=== PATIENT | male | born 1960 | race Caucasian/White ===

== ENCOUNTER 2020-08-26 10:31 | Observation (INO) ==
--- NOTE | 2020-07-23 13:33 | PAT Medication Instructions ---
Medication Instructions Date of Service July 23, 2020 Home Medications cholecalciferol (vitamin D3) [Vitamin D3] 50 mcg PO QAM omega-3 fatty acids [[place] 3] 1,000 mg PO QAM turmeric root extract 1,000 mg PO QAM STOP taking 2 weeks before surgery (or as soon as possible if surgery is within 2 weeks) omega-3 fatty acids [[place] 3] 1,000 mg PO QAM turmeric root extract 1,000 mg PO QAM DO NOT take the morning of surgery cholecalciferol (vitamin D3) [Vitamin D3] 50 mcg PO QAM Other Notes If you have any questions please call us at [phone] or [phone] or [phone] or [phone]
--- NOTE | 2020-07-28 12:42 | History & Physical Report ---
Date of Service July 28, 2020 date of surgery: 08/26/20 procedure: Right Total Knee Arthroplasty Assessment & Plan (1) Arthritis of right knee: Risks and benefits of procedure discussed in detail today, patient would like to proceed with a Right total knee replacement at [facility] as scheduled. will obtain medical clearance from Dr Rebolledo prior to surgery as well as obtain PATs at [facility]. Will place on ASA 81mg po bid x 1 month post op, f/u 2 weeks post op for routine post-operative care and x-ray, sooner if having any problems. will make arrangements for OPPT at the time of discharge. At this point in time, has failed conservative measures and would like to proceed with surgical intervention. The risks and benefits have been discussed including, but not limited to, risk of infection, nerve injury, stiffness, loss of motion, failure to improve, etc. Reasonable outcomes and options of treatment were discussed. An explanation of appropriate alternatives to the procedure that may be advantageous were discussed and their risks and benefits, as well as the risks and benefits of not proceeding with treatment. I offered to answer any additional inquiries concerning the treatment involved. All the patient's questions were answered. The patient is agreeable, understanding of the treatment plan and alternatives, and wishes to proceed with the treatment plan. History of Present Illness Chief Complaint: Right knee pain Primary Care Provider: Adilson Rebolledo MD Mr. Pastrana is a 59 year old male who complains of Right knee pain, presents for pre-op evaluation prior to a right total knee replacement by dr Molina at [facility]. He complains of pain, decreased range of motion, in his right knee. He states that the symptoms have been chronic and non-traumatic and describes his pain as aching, sharp and throbbing. The symptoms are aggravated by ascending stairs, daily activities, first steps while awake walking. Prior NSAIDs include Motrin and Aleve. He has been treated with previous cortisone injections in the past without much relief. he had prior knee arthroscopy partial menisectomy about 6 years ago. 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" Cardiac murmur "MILD" NO CARDS Degenerative disc disease GERD (gastroesophageal reflux disease) Hx of gout Osteoarthritis Surgical History Fusion of spine LUMBAR H/O knee surgery RT/LEFT KNEE (BOTH X 2) History of cholecystectomy History of colonoscopy History of esophagogastroduodenoscopy (EGD) History of repair of rotator cuff RT History of tonsillectomy and adenoidectomy History of total knee replacement LEFT Hx of LASIK [place] teeth removed Family History Brother Family hx of colon cancer Social History Smoking Status: Never smoker Second Hand Exposure: Yes (YEARS AGO); Do You Dip or Chew Tobacco: No; Tobacco Cessation Education Requested by Patient: No Hx Alcohol Use: Yes Alcohol type: beer Preferred Language: Yakut Insole And Outsole Preparer Required: No Beliefs That Will Affect Care: None Current Living Situation: Spouse Feels Safe at Home: Yes Safety Concerns: Feels Safe At This Time Assistive Devices: Glasses Assistive Devices Comment: READING GLASSES Review of Systems Review of Systems: All systems reviewed & are unremarkable except as noted in HPI & below Constitutional: no fever, no chills and no sweats Respiratory: no cough and no dyspnea Cardiovascular: no chest pain, no dyspnea and no orthopnea Gastrointestinal: no abdominal pain, no nausea and no vomiting Musculoskeletal: as per Subjective / HPI Physical Exam Physical Exam: HT: 6ft WT: 98.4kg BP: 128/82 Constitutional: WD/WN, vitals as above no acute distress Respiratory: normal respiratory effort, lungs clear to auscultation no respiratory distress, no labored breathing and does not use accessory muscles Cardiovascular: RRR, no murmur, no edema Gastrointestinal (Abdomen): normal bowel sounds, soft, nontender, no hepatosplenomegaly Musculoskeletal: Knee: + knee abnormal to inspection (Right knee), + effusion (+1 effusion), + surgical incision (well healed portals), + limited ROM of knee (ROM 0/3/110), + knee ROM with crepitation, + joint line tenderness (medial joint line) and + Omer's sign positive; no deformity, no skin erythema, no ecchymosis, no valgus laxity, no varus laxity, anterior drawer test negative, Jaswinder's sign negative and pivot shift test negative Results & Data Results & Data ([place]) Diagnostic Findings right knee x-ray from 05-01-20 showing complete loss joint space medial compartment with overall varus alignment, there is also narrowing of the lateral compartment and patellofemoral joint. there is osteophyte formation, subchondral sclerosis noted, no loose bodies, no acute bony pathology. overall impression tricompartmental degenerative changes to the right knee.
--- NOTE | 2020-07-28 13:23 | Anesthesiology Consultation ---
Date of Service July 28, 2020 Assessment & Plan (1) Encounter for pre-operative examination: - Per assessment on 07/28: Travel screen negative. Patient returned from trip to [place] (traveled in [facility]) 07/16 (DOS not until 08/26/20). No further travel planned until surgery. No known COVID-19 positive contacts or current COVID-19 related symptoms. Surgeon arranging preop COVID testing. Awaiting results. - Left total knee arthroplasty: 08/09/16: SAB x1 attempt at L3-L4 + PNB at [facility] Chart Review Chart Review: Acceptable Risk for Surgery (pending surgeon-ordered PCP clearance) and Patient seen in Pre Admission Testing Teaching & Discussion Pre-Anesthesia Teaching/Discussion Notes: Instructed NPO after midnight before surgery,except medications with 15 cc of water. Medication instructions provided according to the PAT guidelines. History Surgery Operation Date: 08/26/20 07:00 Proposed Procedures p Right Total Knee Arthroplasty - Allen Molina DO Height/Weight Height: 6 ft Weight: 100.5 kg Allergies Allergy/AdvReac Type Severity Reaction Status Date / Time No Known Allergies Allergy Verified 07/20/20 15:18 Medications Home Medications Medication Instructions Recorded Confirmed Last Taken cholecalciferol (vitamin D3) 50 mcg PO QAM 07/20/20 07/20/20 Unknown [Vitamin D3] omega-3 fatty acids [[place] 3] 1,000 mg PO QAM 07/20/20 07/20/20 Unknown turmeric root extract 1,000 mg PO QAM 07/20/20 07/20/20 Unknown Past Medical History Medical History (Updated 07/28/20 @ 14:22 by Marlys Busch) Barretts esophagus Bradycardia chronic, asymptomatic, active, "used to be runner" Degenerative disc disease GERD (gastroesophageal reflux disease) Hx of gout Osteoarthritis Exercise / Class Metabolic Activity II 4-5 Yardwork/Stairs/Walk up hill Past Family History Family History Brother Family hx of colon cancer Past Surgical History Surgical History (Updated 07/28/20 @ 14:12 by Marlys Busch) Fusion of spine Lumbar H/O knee surgery R/L (multiple) History of cholecystectomy History of colonoscopy History of esophagogastroduodenoscopy (EGD) History of repair of rotator cuff Right History of tonsillectomy and adenoidectomy History of total knee replacement Left total knee arthroplasty: 08/09/16: SAB x1 attempt at L3-L4 + PNB at [facility] Hx of LASIK [place] teeth removed Past Anesthesia History No Hx of Anesthesia Complications and No Family Hx of Anesthesia Complications History of PONV No Hx of PONV and No Hx of Motion Sickness Social History Smoking Status: Never smoker Do You Dip or Chew Tobacco: No Hx Alcohol Use: Yes Alcohol type: beer alcohol intake frequency: a few times a week Alcohol Intake Frequency Comment: 6 BEERS PER WEEK substance use type: does not use Review of Systems Patient denies chest pain, shortness of breath, dyspnea on exertion, fever, chills, cough, wheezing, palpitations. Physical Exam Vital Signs VITALS BP 122/84 P 56 TEMP 97.8 SP02 94%RA RESP 16 PHYSICAL Full neck and c-spine range of motion. Full TMJ range of motion. TMD 4 finger breaths Mallampati Score 2 Dentition: intact Lungs: clear throughout to auscultation Cardiac: regular rate and rhythm, I/ systolic murmur Spine: normal Carotid arteries: negative bruit Extremities: no edema Testing Laboratory Results 07/28/20 14:10 07/28/20 14:10 PT 10.6 Seconds (9.0-12.0) 07/28/20 14:10 INR 1.0 (0.9-1.1) 07/28/20 14:10 APTT 28.2 Seconds (21.0-31.0) 07/28/20 14:10 Hemoglobin A1c 5.1 % (4.5-5.6) 07/28/20 14:10 Urine Color Yellow 07/28/20 14:10 Urine Appearance Clear (Clear) 07/28/20 14:10 Urine pH 5.0 (4.5-7.5) 07/28/20 14:10 Ur Specific [place] 1.014 (1.000-1.030) 07/28/20 14:10 Urine Protein Negative (Negative) 07/28/20 14:10 Urine Glucose (UA) Negative (Negative) 07/28/20 14:10 Urine Ketones Negative (Negative) 07/28/20 14:10 Urine Nitrite Negative (Negative) 07/28/20 14:10 Ur Leukocyte Esterase Negative (Negative) 07/28/20 14:10 Blood Type O Negative 07/28/20 14:10 Antibody Screen NEGATIVE 07/28/20 14:10 Low WBC. Preop labs to be forwarded to PCP for continuity of care. Electrocardiogram Date: 04/08/20 SB with first degree AVB at 57bpm. Chest X-Ray Date: 07/28/20 FINDINGS: Cardiomediastinal and hilar silhouettes are within normal limits. No pneumothorax, pleural effusion, airspace consolidation or overt pulmonary edema. Bones of the chest appear grossly intact. Degenerative changes of the shoulders and spine. Cholecystectomy. IMPRESSION: No acute process.
--- NOTE | 2020-07-28 14:30 | XRay Report ---
XR chest Pre-admission PA/Lat HISTORY: 59 years-old Male pat preoperative exam. No acute chest complaints COMPARISON: Chest radiographs 07/11/2016 TECHNIQUE: PA and lateral views of the chest FINDINGS: Cardiomediastinal and hilar silhouettes are within normal limits. No pneumothorax, pleural effusion, airspace consolidation or overt pulmonary edema. Bones of the chest appear grossly intact. Degenerati ve changes of the shoulders and spine. Cholecystectomy. IMPRESSION: No acute process. ACT 112: Negative or not required by law. The above report was generated using voice recognition software. It may contain grammatical, syntax o r spelling errors. Electronically signed by: Yogi Estevez M.D. 07/28/2020 2:28 PM
[2020-07-28 16:17] LABS: Appearance Urine Clear (Clear); Basophils # (auto) 0.01 K/uL (0-0.2); Basophils % (auto) 0.3 %; Bilirubin Urine Negative (Negative); Blood Urine Negative (Negative); Color Urine Yellow; Eosinophils % (auto) 2.6 %; Glucose Urine UA Negative (Negative); Hematocrit (blood only) 44.3 % (42-52); Hemoglobin 14.8 g/dL (14.0-18.0); Immature Granulocytes # (auto) 0.01 K/uL (0.00-0.02); Immature Granulocytes % (auto) 0.3 %; Ketones Urine Negative (Negative); Leukocyte Esterase Urine Negative (Negative); Lymphocytes # (auto) 0.87 K/uL (1.2-3.4); Lymphocytes % (auto) 22.4 %; Mean Corpuscular Hemoglobin 29.9 pg (25-34); Mean Corpuscular Hgb Conc 33.4 g/dL (32-36); Mean Corpuscular Volume 89.5 fL (80-100); Monocytes # (auto) 0.41 K/uL (0.11-0.59); Monocytes % (auto) 10.6 %; Neutrophils # (auto) 2.48 K/uL (1.4-6.5); Neutrophils % (auto) 63.8 %; Nitrite Urine Negative (Negative); Platelet Count 192 K/uL (130-400); Protein Urine Negative (Negative); RDW Coefficient of Variation 13.1 % (11.5-14.5); RDW Standard Deviation 42.7 fL (36.4-46.3); Red Blood Count 4.95 M/uL (4.7-6.1); Specific Gravity Urine 1.014 (1.000-1.030); Urobilinogen Urine Negative (Negative); White Blood Count 3.88 K/uL (4.8-10.8)
[2020-07-28 16:28] LABS: Partial Thromboplastin Time 28.2 Seconds (21.0-31.0); Prothrombin Time 10.6 Seconds (9.0-12.0)
[2020-07-28 16:30] LABS: BUN Creatinine Ratio 16.6 (10-20); Calcium 8.9 mg/dl (8.5-10.1); Creatinine Clr Calc Pharmacy 79.4 ml/min; Est GFR (Non-African American) 63.9; Potassium 3.9 mmol/L (3.5-5.1)
[2020-07-29 05:41] LABS: Estimated Average Glucose 100 mg/dl; Hemoglobin A1C 5.1 % (4.5-5.6)
[~2020-08-26 10:31] MED LIST: ACETAMINOPHEN 500 MG TAB PO SCH; BUPIVACAINE 0.5 % 5 MG/1 ML PF 10ML VIAL ONE; CeleBREX 200 MG CAP PO SCH; FAMOTIDINE 20 MG TAB PO SCH; GABAPENTIN 600 MG DOSE PO SCH; LIDOCAINE HCL 2% 2 ML VIAL/AMP(20MG/ML) INFIL ONE; LR 500ML BOLUS, THEN 15ML/HR IV SCH; METOCLOPRAMIDE HCL 10 MG TABLET PO SCH; MIDAZOLAM HCL 1 MG/ML 2ML VIAL ONE; PROPOFOL IV EMULSION 10 MG/ML 20 ML VIAL IV ONE; ROPIVACAINE 0.5% 5 MG/ML 30 ML VIAL ONE; ROPIVACAINE 0.5% HCL/PF 150 MG, BUPIVACAINE 0.5% MPF 30 ML, EPINEPHrine 30MG/30ML (OR U... INSTIL SCH; TRANEXAMIC ACID 1,000 MG **IV Intra-op IV SCH; TRANEXAMIC ACID 1,000 MG **IV Pre-op IV SCH; ceFAZolin 2000MG 2,000 MG/15 ML SYR IV SCH; dexAMETHasone 4 MG TAB PO SCH
--- NOTE | 2020-08-26 10:52 | History & Physical Bridge Note ---
Date of Service August 26, 2020 History & Physical Bridge Note I have examined the patient, reviewed the History & Physical and in the interval since the performance of the History & Physical I have noted the following changes of clinical significance: no changes noted
[2020-08-26] MEDS ORDERED: BACITRACIN INJ 50,000 UNIT VIAL ONE (11:35)
[2020-08-26] MEDS ORDERED: ORTHO JOINT ANESTHETIC ONE (11:36)
[2020-08-26] MEDS ORDERED: KETOROLAC 30 MG/ML VIAL IV PRN (12:14)
[2020-08-26] MEDS ORDERED: ePHEDrine sulfate 50 MG/ML AMP IV PRN (12:14)
[2020-08-26] MEDS ORDERED: ATROPINE SULFATE 0.1 MG/ML 10ML SYR IV PRN (12:14)
[2020-08-26] MEDS ORDERED: HYDROmorphone INJ 1 MG/ML SYRINGE IV PRN ×2 (12:14→16:19)
[2020-08-26] MEDS ORDERED: ONDANSETRON INJ 2 MG/ML 2 ML VIAL IV PRN ×2 (12:14→16:19)
--- NOTE | 2020-08-26 13:37 | Operative Report ---
Post Operative Report Pre & Post Diagnosis Operation Date: 08/26/20 12:20 Pre-Op Diagnosis: Unilateral Primary Osteoarthritis of Right Knee Post-Op Diagnosis: Unilateral Primary Osteoarthritis of Right Knee I identified the patient and participated in the time-out.: Yes Procedure Operation Date: 08/26/20 12:20 Actual Procedures p Right Total Knee Arthroplasty, Cemented(Right) utilizing [employer] journey 2 patient matched total knee arthroplasty size 7 femur 6 tibia 11 polyethylene 38 oval patella- Allen Molina DO Surgeon Allen Molina DO Medical Transport Specialist Paul ROSADO Estimated Blood Loss 5 Findings Consistent with Post-Op Diagnosis Patient presents with severe end-stage DJD 7 degree flexion contracture right knee varus alignment subchondral [id number] subchondral sclerosis marginal o steophytes moderate to large effusion no response to conservative management Specimens Bone and cartilage Drains Medium bore Hemovac Anesthesia Type MAC Spinal Regional Disposition Accompanied Patient To Recovery: No Disposition: Recovery Room Indications Patient presents being seen evaluated for planes of ongoing pain trouble to the right knee no response to conservative management the patient is failed times a corticosteroid injection Visco supplementation relative rest activity modification the above intraoperative findings were noted. Description of Procedure After proper prepping and draping of the Right lower extremity anterior midline incision was made over the region of the extensor extensor mechanism after meticulous hemostasis was obtained and maintained in subcutaneous tissues a medial parapatellar incision was made The patella was subluxed lateralward the medial lateral gutter were cleaned from any hypertrophic synovitis and scar tissue of the distal femoral block was placed and the distal femoral osteotomy cut was made subsequently the chamfers anterior and posterior osteotomy cuts were made utilizing the 4-in-1 block the tibia was subsequently subluxed anteriorward medial and ateral meniscal remnants were excised in their entirety remnants of the anterior and posterior cruciate ligaments were excised in their entirety excellent exposure of the proximal tibia was obtained the tibial osteotomy guide was placed on the proximal tibial osteotomy cut was made once again the knee was irrigated with copious amounts of sterile saline solution the patella was subsequently everted lateralward thickened scar tissue around the patella was removed the patella was subsequently cut utilizing a freehand technique and was drilled prepared for final preparation and placement of patella socially flexion-extension gaps were checked and the equal and symmetric trials were placed to the appropriate femoral and tibial trials with poly-spacer being placed for equal flexion and extension gaps and full range of motion including extension to 0 and flexion to 140 the trial components after having been taken to recovery range of motion was subsequently removed meticulous hemostasis was obtained and maintained subsequently a knee block injection of joint cocktail including ropivacaine 0.5% 150 mg. Bupivacaine 0.5% epinephrine 1-200,030 mL's toradol 30 mg dexamethasone 4 mg ketamine 10 mg clonidine 100 micrograms normal saline solution 30 mg was infiltrated into the soft tissues of the posterior knee medial lateral gutters and periosteal synovium special attention was paid to protect neurovascular structures at all times subsequently trial components having been removed the knee was irrigated with sterile saline solution. debris was removed the proximal tibia was subsequently prepared and was made ready for the placement of the tibial component tibial component was a lso cemented and tamped into position the femoral component was subsequently placed and cemented in the position the patellar component was subsequently cemented in position because hemostasis once again obtained and maintained wound having been thoroughly irrigated with debridement and debridement lavage was performed as well as a medial parapatellar incision closed with #1 Vicryl in interrupted fashion subcutaneous was closed with #2 Vicryl skin was closed with skin clips. PA-C was necessary for prepping and drapping as well as wound closure of deep fascia Sub cutaneous tissue and skin and was necessary for the case. A sterile compressive dressing was placed patient was taken to recovery in stable condition of report dictated by Jesse I attest to the content of the Intraoperative Record and any orders documented therein. Any exceptions are noted below. I attest to the content of the Intraoperative Record and any orders documented therein. Any exceptions are noted below.
--- NOTE | 2020-08-26 14:39 | XRay Report ---
TWO VIEWS RIGHT KNEE CLINICAL HISTORY: Postoperative examination. FINDINGS: AP and crosstable lateral portable views of the right knee are obtained. A right knee arthr oplasty is in near anatomic alignment. There has been undersurface remodeling of the patella. No acut e fracture is seen. There are expected postoperative changes around the knee including a surgical malcom in, soft tissue edema, and subcutaneous gas. IMPRESSION: Expected postoperative changes status post right knee arthroplasty. No acute fracture is seen. ACT 112: Negative or not required by law. Electronically signed by: Eamon Mack M.D. 08/26/2020 2:38 PM
--- NOTE | 2020-08-26 14:51 | Anesthesiology Progress Note ---
Date of Service August 26, 2020 Anesthesia Post Procedure Vital Signs Vital Signs: Temp Pulse Pulse Resp BP BP Pulse Ox 08/26/20 14:40 52 L 18 101/61 95 08/26/20 14:30 56 L 16 114/65 97 08/26/20 14:20 37.3 C 55 L 14 117/59 L 96 08/26/20 11:37 59 L 18 135/75 18 L 08/26/20 11:00 36.4 C L 62 18 135/88 94 Transfer of Care Handoff Completed per policy Notes Mental Status: alert / awake / arousable and participated in evaluation Nausea / Vomiting: adequately controlled Pain: adequately controlled Airway Patency, RR, SpO2: stable & adequate BP & HR: stable & adequate Hydration State: stable & adequate Neuraxial Anesthesia: was administered and sensory block is resolving Anesthetic Complications: no major complications apparent and Pt Satisfied with anesthetic care
[2020-08-26] MEDS ORDERED: MAGNESIUM HYDROXIDE SUSP 30 ML UDC PO PRN (16:19)
[2020-08-26] MEDS ORDERED: diphenhydrAMINE Capsule 25 MG CAP PO PRN (16:19)
[2020-08-26] MEDS ORDERED: bisacodyL 10 MG SUPP PR PRN (16:19)
[2020-08-26] MEDS ORDERED: NALOXONE HCL 0.4 MG/1 ML VIAL/CARP IV PRN (16:19)
[2020-08-26] MEDS ORDERED: METOCLOPRAMIDE HCL INJ 5 MG/ML 2 ML VIAL IV PRN (16:19)
[2020-08-26] MEDS ORDERED: oxyCODONE HCL IR 5 MG TAB (IMMEDIATE RELEASE) PO PRN (16:19)
[2020-08-26] MEDS ORDERED: SODIUM CHLORIDE 0.9% 1000ML 1,000 ML IV SCH (16:19)
[2020-08-26] MEDS: ACETAMINOPHEN 500 MG TAB PO SCH ×2 (17:41→22:20)
[2020-08-26] MEDS: KETOROLAC 30 MG/ML VIAL IV SCH ×2 (17:41→22:20)
[2020-08-26] MEDS: ceFAZolin 2000MG 2,000 MG/15 ML SYR IV SCH (20:48)
[2020-08-26] MEDS: ASPIRIN 81 MG ECTAB PO SCH (20:49)
[2020-08-26] MEDS: DOCUSATE SODIUM 100 MG CAP PO SCH (20:49)
[2020-08-26] MEDS ORDERED: SENNA 8.6 MG TAB PO SCH (21:00)
[2020-08-27] MEDS: ceFAZolin 2000MG 2,000 MG/15 ML SYR IV SCH (05:25)
[2020-08-27] MEDS: KETOROLAC 30 MG/ML VIAL IV SCH ×2 (05:28→12:08)
[2020-08-27] MEDS: ACETAMINOPHEN 500 MG TAB PO SCH (05:30)
[2020-08-27 06:10] LABS: Hematocrit (blood only) 38.7 % (42-52); Hemoglobin 13.4 g/dL (14.0-18.0); Mean Corpuscular Hemoglobin 30.8 pg (25-34); Mean Corpuscular Hgb Conc 34.6 g/dL (32-36); Mean Platelet Volume 10.4 fL (7.4-10.4); Platelet Count 200 K/uL (130-400); Red Blood Count 4.35 M/uL (4.7-6.1)
[2020-08-27 06:46] LABS: BUN Creatinine Ratio 12.1 (10-20); Calcium 8.3 mg/dl (8.5-10.1); Creatinine Clr Calc Pharmacy 74.6 ml/min; Est GFR (African American) 68.6; Est GFR (Non-African American) 59.2; Potassium 3.9 mmol/L (3.5-5.1)
--- NOTE | 2020-08-27 07:07 | Orthopedic Progress Note ---
Date of Service August 27, 2020 Assessment & Plan (1) History of total right knee replacement: POD #1 s/p Right TKA pt/ot dvt proph with THONG/SCD/ASA plan for d/c home with OPPT when stable, will check drain output prior to discharge. Admission and Anticipated Discharge Date Admission Date: August 26, 2020 Subjective POD #1 s/p Right TKA Review of Systems Constitutional: no fever, no chills and no sweats Respiratory: no cough and no dyspnea Cardiovascular: no chest pain and no dyspnea Gastrointestinal: no abdominal pain, no nausea and no vomiting Physical Exam Physical Exam: Laboratory Results WBC 12.40 K/uL (4.8-1 0.8) H 08/27/20 05:44 RBC 4.35 M/uL (4.7-6. 1) L 08/27/20 05:44 Hgb 13.4 g/dL (14.0-1 8.0) L 08/27/20 05:44 Hct 38.7 % (42-52) L 08/27/20 05:44 MCV 89.0 fL (80-100) 08/27/20 05:44 MCH 30.8 pg (25-34) 08/27/20 05:44 MCHC 34.6 g/dL (32-36) 08/27/20 05:44 RDW Std Deviation 42.0 fL (36.4-46. 3) 08/27/20 05:44 RDW Coeff of Anahy 13.0 % (11.5-14.5 ) 08/27/20 05:44 Plt Count 200 K/uL (130-400 ) 08/27/20 05:44 MPV 10.4 fL (7.4-10.4 ) 08/27/20 05:44 Immature Gran % (A uto) 0.3 % 07/28/20 14:10 Neut % (Auto) 63.8 % 07/28/20 14:10 Lymph % (Auto) 22.4 % 07/28/20 14:10 Hickman % (Auto) 10.6 % 07/28/20 14:10 Eos % (Auto) 2.6 % 07/28/20 14:10 Baso % (Auto) 0.3 % 07/28/20 14:10 Neut # (Auto) 2.48 K/uL (1.4-6. 5) 07/28/20 14:10 Lymph # (Auto) 0.87 K/uL (1.2-3. 4) L 07/28/20 14:10 Hickman # (Auto) 0.41 K/uL (0.11-0 .59) 07/28/20 14:10 Eos # (Auto) 0.10 K/uL (0-0.5) 07/28/20 14:10 Baso # (Auto) 0.01 K/uL (0-0.2) 07/28/20 14:10 Immature Gran # (A uto) 0.01 K/uL (0.00-0 .02) 07/28/20 14:10 PT 10.6 Seconds (9.0 -12.0) 07/28/20 14:10 INR 1.0 (0.9-1.1) 07/28/20 14:10 APTT 28.2 Seconds (21. 0-31.0) 07/28/20 14:10 PTT Ratio 1.0 07/28/20 14:10 Sodium 140 mmol/L (136-1 45) 08/27/20 05:44 Potassium 3.9 mmol/L (3.5-5 .1) 08/27/20 05:44 Chloride 110 mmol/L (98-10 7) H 08/27/20 05:44 Carbon Dioxide 25 mmol/L (21-32) 08/27/20 05:44 Anion Gap 5.0 (3-11) 08/27/20 05:44 BUN 16 mg/dl (7-18) 08/27/20 05:44 Creatinine 1.31 mg/dl (0.6-1 .4) 08/27/20 05:44 Est Cr Clr Drug Do sing 74.6 ml/min 08/27/20 05:44 Est GFR ( A osvaldo) 68.6 08/27/20 05:44 Est GFR (Non-Af Am er) 59.2 08/27/20 05:44 BUN/Creatinine Rat io 12.1 (10-20) 08/27/20 05:44 Glucose 117 mg/dl (70-99) H 08/27/20 05:44 Estimat Average Gl ucose 100 mg/dl 07/28/20 14:10 Hemoglobin A1c 5.1 % (4.5-5.6) 07/28/20 14:10 Calcium 8.3 mg/dl (8.5-10 .1) L 08/27/20 05:44 Albumin 4.0 gm/dl (3.4-5. 0) 07/28/20 14:10 Urine Color Yellow 07/28/20 14:10 Urine Appearance Clear (Clear) 07/28/20 14:10 Urine pH 5.0 (4.5-7.5) 07/28/20 14:10 Ur Specific Gravit y 1.014 (1.000-1.0 30) 07/28/20 14:10 Urine Protein Negative (Negati ve) 07/28/20 14:10 Urine Glucose (UA) Negative (Negati ve) 07/28/20 14:10 Urine Ketones Negative (Negati ve) 07/28/20 14:10 Urine Blood Negative (Negati ve) 07/28/20 14:10 Urine Nitrite Negative (Negati ve) 07/28/20 14:10 Urine Bilirubin Negative (Negati ve) 07/28/20 14:10 Urine Urobilinogen Negative (Negati ve) 07/28/20 14:10 Ur Leukocyte Alicia ase Negative (Negati ve) 07/28/20 14:10 Blood Type O Negative 07/28/20 14:10 Antibody Screen NEGATIVE 07/28/20 14:10 Constitutional: WD/WN, vitals as above no acute distress Musculoskeletal: Right Leg: NVDI, calf SNT, negative miguel sign. DP palpable, able to wiggle toes/ankle movement without difficulty. dressing clean dry and intact. Results & Data ([facility]) Vital Signs (Past 12 Hours) Vital Signs Temp Pulse Resp BP BP Pulse Ox 08/27/20 03:41 36.5 C 61 15 123/70 94 08/26/20 23:41 36.4 C L 62 16 149/88 H 92 08/26/20 20:57 36.7 C 63 18 141/92 H 95 Laboratory Results Laboratory Results WBC 12.40 K/uL (4.8-10.8) H 08/27/20 05:44 RBC 4.35 M/uL (4.7-6.1) L 08/27/20 05:44 Hgb 13.4 g/dL (14.0-18.0) L 08/27/20 05:44 Hct 38.7 % (42-52) L 08/27/20 05:44 MCV 89.0 fL (80-100) 08/27/20 05:44 MCH 30.8 pg (25-34) 08/27/20 05:44 MCHC 34.6 g/dL (32-36) 08/27/20 05:44 RDW Std Deviation 42.0 fL (36.4-46.3) 08/27/20 05:44 RDW Coeff of Anahy 13.0 % (11.5-14.5) 08/27/20 05:44 Plt Count 200 K/uL (130-400) 08/27/20 05:44 MPV 10.4 fL (7.4-10.4) 08/27/20 05:44 Immature Gran % (Auto) 0.3 % 07/28/20 14:10 Neut % (Auto) 63.8 % 07/28/20 14:10 Lymph % (Auto) 22.4 % 07/28/20 14:10 Hickman % (Auto) 10.6 % 07/28/20 14:10 Eos % (Auto) 2.6 % 07/28/20 14:10 Baso % (Auto) 0.3 % 07/28/20 14:10 Neut # (Auto) 2.48 K/uL (1.4-6.5) 07/28/20 14:10 Lymph # (Auto) 0.87 K/uL (1.2-3.4) L 07/28/20 14:10 Hickman # (Auto) 0.41 K/uL (0.11-0.59) 07/28/20 14:10 Eos # (Auto) 0.10 K/uL (0-0.5) 07/28/20 14:10 Baso # (Auto) 0.01 K/uL (0-0.2) 07/28/20 14:10 Immature Gran # (Auto) 0.01 K/uL (0.00-0.02) 07/28/20 14:10 PT 10.6 Seconds (9.0-12.0) 07/28/20 14:10 INR 1.0 (0.9-1.1) 07/28/20 14:10 APTT 28.2 Seconds (21.0-31.0) 07/28/20 14:10 PTT Ratio 1.0 07/28/20 14:10 Sodium 140 mmol/L (136-145) 08/27/20 05:44 Potassium 3.9 mmol/L (3.5-5.1) 08/27/20 05:44 Chloride 110 mmol/L (98-107) H 08/27/20 05:44 Carbon Dioxide 25 mmol/L (21-32) 08/27/20 05:44 Anion Gap 5.0 (3-11) 08/27/20 05:44 BUN 16 mg/dl (7-18) 08/27/20 05:44 Creatinine 1.31 mg/dl (0.6-1.4) 08/27/20 05:44 Est Cr Clr Drug Dosing 74.6 ml/min 08/27/20 05:44 Est GFR ( Amer) 68.6 08/27/20 05:44 Est GFR (Non-Af Amer) 59.2 08/27/20 05:44 BUN/Creatinine Ratio 12.1 (-) 08/27/20 05:44 Glucose 117 mg/dl (70-99) H 08/27/20 05:44 Estimat Average Glucose 100 mg/dl 07/28/20 14:10 Hemoglobin A1c 5.1 % (4.5-5.6) 07/28/20 14:10 Calcium 8.3 mg/dl (8.5-10.1) L 08/27/20 05:44 Albumin 4.0 gm/dl (3.4-5.0) 07/28/20 14:10 Urine Color Yellow 07/28/20 14:10 Urine Appearance Clear (Clear) 07/28/20 14:10 Urine pH 5.0 (4.5-7.5) 07/28/20 14:10 Ur Specific [place] 1.014 (1.000-1.030) 07/28/20 14:10 Urine Protein Negative (Negative) 07/28/20 14:10 Urine Glucose (UA) Negative (Negative) 07/28/20 14:10 Urine Ketones Negative (Negative) 07/28/20 14:10 Urine Blood Negative (Negative) 07/28/20 14:10 Urine Nitrite Negative (Negative) 07/28/20 14:10 Urine Bilirubin Negative (Negative) 07/28/20 14:10 Urine Urobilinogen Negative (Negative) 07/28/20 14:10 Ur Leukocyte Esterase Negative (Negative) 07/28/20 14:10 Blood Type O Negative 07/28/20 14:10 Antibody Screen NEGATIVE 07/28/20 14:10 Diagnostic Findings TWO VIEWS RIGHT KNEE CLINICAL HISTORY: Postoperative examination. FINDINGS: AP and crosstable lateral portable views of the right knee are obtained. A right knee arthroplasty is in near anatomic alignment. There has been undersurface remodeling of the patella. No acute fracture is seen. There are expected postoperative changes around the knee including a surgical drain, soft tissue edema, and subcutaneous gas. IMPRESSION: Expected postoperative changes status post right knee arthroplasty. No acute fracture is seen.
[2020-08-27] MEDS ORDERED: MULTIVITAMIN TAB PO SCH (09:00)
[2020-08-27] MEDS ORDERED: CeleBREX 200 MG CAP PO SCH (09:00)
[2020-08-27] MEDS ORDERED: CHOLECALCIFEROL 1,000 UNITS 25 MCG TAB PO SCH (09:00)
--- NOTE | 2020-08-27 09:01 | Anesthesiology Progress Note ---
Date of Service August 27, 2020 Anesthesia Post Procedure Vital Signs Vital Signs: Temp Pulse Pulse Resp BP BP Pulse Ox 08/27/20 07:30 36.6 C 58 L 16 123/75 96 08/27/20 03:41 36.5 C 61 15 123/70 94 08/26/20 23:41 36.4 C L 62 16 149/88 H 92 08/26/20 20:57 36.7 C 63 18 141/92 H 95 08/26/20 18:35 36.6 C 60 18 138/87 96 08/26/20 17:39 62 16 132/85 95 08/26/20 16:38 36.6 C 61 18 122/78 96 08/26/20 16:07 36.5 C 60 18 121/73 96 08/26/20 15:20 63 20 113/67 94 08/26/20 15:10 56 L 20 119/64 95 08/26/20 15:00 56 L 20 119/67 93 08/26/20 14:50 54 L 18 110/64 95 08/26/20 14:40 52 L 18 101/61 95 08/26/20 14:30 56 L 16 114/65 97 08/26/20 14:20 37.3 C 55 L 14 117/59 L 96 08/26/20 11:37 59 L 18 135/75 18 L 08/26/20 11:00 36.4 C L 62 18 135/88 94 Pain Intensity Right Knee: Pain Intensity: 2 Notes Mental Status: alert / awake / arousable and participated in evaluation Nausea / Vomiting: adequately controlled Pain: adequately controlled Airway Patency, RR, SpO2: stable & adequate BP & HR: stable & adequate Hydration State: stable & adequate Neuraxial Anesthesia: was administered and sensory block resolved Anesthetic Complications: Pt Satisfied with anesthetic care
[2020-08-27] MEDS: DOCUSATE SODIUM 100 MG CAP PO SCH (09:13)
[2020-08-27] MEDS: ASPIRIN 81 MG ECTAB PO SCH (10:03)
--- NOTE | 2020-08-27 12:47 | Discharge Summary ---
Date of Service date of discharge: August 27, 2020 date of admission: 08-26-20 Admission HPI Per Admitting Provider Mr. Pastrana is a 59 year old male who complains of Right knee pain, presents for pre-op evaluation prior to a right total knee replacement by dr Molina at [facility]. He complains of pain, decreased range of motion, in his right knee. He states that the symptoms have been chronic and non-traumatic and describes his pain as aching, sharp and throbbing. The symptoms are aggravated by ascending stairs, daily activities, first steps while awake walking. Prior NSAIDs include Motrin and Aleve. He has been treated with previous cortisone injections in the past without much relief. he had prior knee arthroscopy partial menisectomy about 6 years ago. Principal Diagnosis Right knee arthritis Discharge Exam Vital Signs Temp 36.6 C 08/27/20 10:57 Pulse 58 L 08/27/20 10:57 Resp 16 08/27/20 10:57 BP 141/92 H 08/27/20 10:57 Pulse Ox 96 08/27/20 10:57 Intake & Output 08/26/20 08/27/20 08/27/20 18:59 06:59 18:59 Intake Total 2000 / 2581.667 581.667 / 2581.667 Output Total 425 / 2750 2325 / 2750 100 / 100 Balance 1575 / -168.333 -1743.333 / -168.333 -100 / -100 Weight 100.8 kg 100.8 kg Intake: IV 1300 / 1881.667 581.667 / 1881.667 Lr 1,000 ml @ 15 mls/hr IV . 1100 / 1100 Q24H [facility]EN Rx#:[id number] Nss 1000ML 1,000 ml @ 100 mls/ 581.667 / 581.667 hr IV .Q10H [facility] Rx#:[id number] TRANEXAMIC ACID / 0.7% NACL 1, 200 / 200 000 mg In 100 ml @ 600 mls/hr IV TODAY@0600 L[facility]EN Rx#:[id number] IV Perioperative 700 / 700 Output: Urine 400 / 2100 1700 / 2100 Estimated Blood Loss 5 / 5 Drain Output 625 / 645 100 / 100 Right Hemovac #1 625 / 645 100 / 100 Other: # Unmeasured Voids 3 Weight Measurement Method Standing Scale Constitutional WD/WN, vitals as above no acute distress Musculoskeletal Right Knee: NVDI, calf SNT, negative miguel sign. DP palpable, able to wiggle toes/ankle movement without difficulty. dressing clean dry and intact. expected post-operative bruising noted. Discharge Data Allergies Allergy/AdvReac Type Severity Reaction Status Date / Time No Known Allergies Allergy Verified 08/26/20 10:55 Consultations 08/26/20 16:19 Consult Case Management - Discharge Planning Routine Procedures Performed Operation Date: 08/26/20 12:20 Actual Procedures p Right Total Knee Arthroplasty, Cemented(Right) - Allen Molina DO Ordered Studies 08/26/20 05:00 US - OR guided needle placemen Stat Hospital Course (1) History of total right knee replacement: POD #1 s/p Right TKA pt/ot dvt proph with THONG/SCD/ASA plan for d/c home with OPPT when stable, will check drain output prior to discharge. Total Time Total Time Spent Total Time Spent (In Minutes): 20 Discharge Plan Discharge Items Patient Disposition: Home - Self-Care Reason For Visit: Unilateral Primary Osteoarthritis of Right Knee Discharge Diagnosis: right total knee replacement Condition on Discharge: Good Activity: Per Instructions section Lifting: Wait until after follow-up appointment Weightbearing: Full weightbearing Weightbearing Comment: WBAT with walker Non-emergency contact: Surgeon Call non-emergency contact if: you have any medication questions, your temperature is above 101, your wound has increased redness, your wound has increased drainage and your wound pain has increased Follow-up/Referrals: Adilson Rebolledo MD [Primary Care Provider] - Diet: Regular Addtl Attending Provider Instructions: ACTIVITY RECOMMENDATIONS: SELF CARE INSTRUCTIONS AFTER TOTAL KNEE REPLACEMENT A. You may need to continue a physical therapy program after discharge from the hospital. There are several options available to you. Your doctor will assist you in selecting the best one for you. 1. An out-patient facility 2 to 3 times a week for therapy or home therapy. 2. Continue working on all exercises taught to you in the hospital. Your goals should be to increase bending of your knee to 90 degrees and beyond and to fully straighten your knee. B. You may progress at your own pace from walking with a walker or crutches to a cane; then to no assistive devices. C. Make walking a part of your daily routine. Be up as much as comfortable with rest periods throughout the day. Rest with leg elevation is very important. Use the ice wrap frequently for the first 3-4 weeks. D. There are no restrictions on activities. You may ride in a car, shop, participate in primary care nurse and all social activities. E. Wear the long elastic stockings (THONG hose) 20 hours a day for 2 weeks after surgery. They can be removed several times a day for laundering and for a bath. F. You may shower, no tub baths until cleared by your doctor. SPECIAL CARE INSTRUCTIONS: VERY IMPORTANT TO READ AND REVIEW A. There are a few signs you need to watch for after you are home. Call [facility] if you notice any of the followin. Increased severe knee pain. Some pain is expected especially when you exercise. 2. Increased swelling in your leg or knee; pain or swelling of the calf muscle in either lower leg. 3. Any fluid drainage from the incision. 4. Shortness of breath or chest pain. B. Please call [facility] at if you have any concerns or questions about your operation or recovery. The doctor or his nurse will return your call promptly. C. You must take antibiotics before dental work, bladder, bowel or other surgery. Your doctor will provide you with a permanent care to carry describing this precaution. IMPORTANT: * REMEMBER TO TAKE ASPIRIN, 81 MG, TWICE DAILY FOR 4 WEEKS UNLESS OTHERWISE DIRECTED. THIS IS YOUR BLOOD THINNER. * HIGH RISK PATIENTS MAY BE PRESCRIBED A STRONGER BLOOD THINNER. THIS WILL BE PROVIDED AT DISCHARGE. * CALL IF INCREASED PAIN, REDNESS, DRAINAGE OR FEVER GREATER THAT 101. * WEAR THONG HOSE 20 HOURS PER DAY FOR 2 WEEKS. * DERMABOND Prineo- This is a mesh tape dressing that is covered with glue. It should remain in place until the incision is properly healed, usually 10-14 days. This dressing is designed to naturally slough off. You may trim the excess mesh tape as it peels off. Incision may be briefly wet in a shower. Dry immediately by blotting with a clean, dry towel. Do not bath or swim until instructed by your doctor. Do not scratch, rub, or pick at the dressing. Do not apply any topical ointments or lotions until dressing is completely removed and/or instructed by your doctor. There may be a small piece of suture material at one end of your incision. Do not pull or trim this. If it is bothersome or catching on clothing, you may cover it with a band-aid. IF INCISION IS LEAKING THROUGH DRESSING, CALL THE OFFICE . FOLLOW UP VISIT: If appointment is not already scheduled: Please call [facility] to make a follow-up appointment for 2 weeks after your surgery at . Pending Studies at Discharge: No Visit Report Forms: Smoking Cessation Stand-Alone Forms: [facility], Opioid Pain Management, Work/School Release (Inpt), Smoking Cessation Medications and DC Order Prescriptions: New acetaminophen 500 mg Tablet 1,000 mg PO Q8 21 Days Qty: 126 RF: 0 celecoxib [Celebrex] 200 mg Capsule 200 mg PO BID 30 Days Qty: 60 RF: 0 aspirin 81 mg Tablet,Delayed Release (Dr/Ec) 81 mg PO BID 30 Days Qty: 60 RF: 0 oxycodone 5 mg Tablet 5 - 10 mg PO Q6H PRN (Reason: pain) Qty: 30 RF: 0 docusate sodium 100 mg Capsule 100 mg PO BID 10 Days Qty: 20 RF: 0 cefadroxil 500 mg capsule 500 mg PO BID 10 Days Qty: 20 RF: 0 Continued cholecalciferol (vitamin D3) [Vitamin D3] 50 mcg (2,000 unit) Capsule 50 mcg PO QAM RF: 0 omega-3 fatty acids Capsule 1,000 mg PO QAM RF: 0 Discontinued turmeric root extract 500 mg Capsule 1,000 mg PO QAM RF: 0 Discharge Orders: Discharge Order (Routine); Ordered 08/27/20 Ordered By: Paul Coreas/Other Patient Handouts: DVT Post Op Prevention, Post-Op Tips: Knee, After Knee Replacement: Back at Home Admission Data Admit Date/Time: 08/26/20 14:26 Attending Provider: Allen Molina Admit Provider: Allen Molina Primary Care Provider: Adilson Rebolledo Other Interventions: Discharge Summary Assessment (RN) Last Done: 08/27/20 10:57
== END 2020-08-27 13:21 | disposition home or self-care (01) ==
LOC: ASU 10:31 → 3E 10:31